=== PATIENT | male | born 1980 | race Caucasian/White ===

== ENCOUNTER 2020-12-20 08:00 | Outpatient (CLI) | payer BC ==
--- NOTE | 2020-12-20 13:08 | XRAY Report ---
PROCEDURE: Ankle 3 View RT INDICATIONS: ANKLE SPRAIN TECHNIQUE: 3 views of the ankle were acquired. COMPARISON: None FINDINGS: Bones: No fractures or dislocations. Ankle mortise is normally aligned. No suspicious bony lesions . The talar dome demonstrates an unremarkable appearance. A plantar calcaneal spur is incidentall y noted. Soft tissues: No significant soft tissue swelling is seen. IMPRESSION: No displaced fractures are seen on this plain study. If it would be helpful for clinical management decision making, please consider a dedicated, schedule d ankle MRI for further evaluation (assuming that there is no contraindication). Reviewed by: Kalen Klein MD on 12/20/2020 12:06 PM [facility] Approved by: Kalen Klein MD on 12/20/2020 12:06 PM [facility] Station ID: [id number]
== END 2020-12-20 23:59 | disposition home or self-care (01) ==
LOC: DI.N 08:00 → EDSTATUS 01-26 10:39 → DI.N 01-26 23:59
PROVIDERS: ATTEND Family Medicine
DX: S93.401A Sprain of unspecified ligament of right ankle, initial encounter (principal)